=== PATIENT | female | born 1955 | race Caucasian/White ===

== ENCOUNTER 2016-11-03 06:28 | Day surgery (SDC) | payer BC ==
[~2016-11-03 06:28] MED LIST: Lactated Ringers 1,000 ML IV SCH
[2016-11-03] MEDS ORDERED: Lactated Ringers 1,000 ML IV SCH (07:00)
[2016-11-03] MEDS ORDERED: Propofol 200 MG/20 ML SDV ONE (07:37)
[2016-11-03] MEDS ORDERED: fentaNYL 100 MCG/2 ML SDV ONE (07:37)
[2016-11-03] MEDS ORDERED: Midazolam 1 MG/ML 2 ML SDV ONE (07:37)
[2016-11-03 09:13] VITALS: BP 98/73
--- NOTE | 2016-11-03 10:31 | OR ---
DATE OF PROCEDURE: 11/03/2016 PREOPERATIVE DIAGNOSIS: Colon cancer screening. POSTOPERATIVE DIAGNOSIS: Diverticulosis. PROCEDURE: Colonoscopy to the cecum. ANESTHESIA: IV anesthesia with monitored anesthesia care. INDICATIONS: This 61-year-old white female is referred for a colonoscopy for colon cancer screening. She said the last colonoscopy was done many years ago, probably about ten. I counseled her for the procedure, including risks and alternatives, and she gave her informed consent to proceed. DESCRIPTION OF PROCEDURE: The patient was placed in the left lateral decubitus position. IV anesthesia was administered by the Anesthesia Service. Time-out was held. A rectal exam was performed, which was unremarkable. The flexible video Olympus colonoscope was introduced through her anus, up her rectum, and out her colon all way to the cecum. En route, we saw a few scattered left-sided diverticula. There was no bleeding or inflammation associated with any of them. Once the cecum was reached, the scope was slowly withdrawn, examining the mucosa throughout. No additional mucosal abnormalities were noted. The scope was retroflexed in the rectum with the distal rectum appearing unremarkable. The scope was straightened and removed. She tolerated the procedure well. Charbel Newell MD /[id number] SHAKEEL
== END 2016-11-03 09:15 | disposition home or self-care (01) ==
LOC: JP.SDS 06:28
PROVIDERS: ATTEND Surgery
DX: Z12.11 Encounter for screening for malignant neoplasm of colon (principal); K57.30 Diverticulosis of large intestine without perforation or abscess without bleeding
CPT/HCPCS: 45378; J2250; J2704; J3010; J7120

== ENCOUNTER 2019-04-19 08:36 | Emergency (ER) | payer BC, OTHER ==
[2019-04-19] MEDS ORDERED: Sodium Chloride 0.9% 1,000 ML IV SCH ×2 (09:15→10:30)
--- NOTE | 2019-04-19 09:20 | EDM.PDOC ---
ED HPI GENERAL MEDICAL PROBLEM - General Chief Complaint: Flank Pain Stated Complaint: BLOOD IN URINE Time Seen by Provider: 04/19/19 09:17 Source of Information: Reports: Patient History Limitations: Reports: No Limitations - History of Present Illness INITIAL COMMENTS - FREE TEXT/NARRATIVE: pt has left flank pain. She is passing pure blood at times. This has happened before. She is being followed by a urologist. Onset: Today, Other (pain got bad during the nite. ) Duration: Hour(s): Location: Reports: Abdomen Associated Symptoms: Reports: Weakness flank pain Pain Score (Numeric/FACES): 8 - Related Data Allergies Allergy/AdvReac Type Severity Reaction Status Date / Time acetaminophen [From [place]] Allergy Cannot Verified 04/19/19 09:04 Remember chlorthalidone Allergy Cannot Verified 04/19/19 09:04 Remember cortisone [Cortisone] Allergy Redness Verified 04/19/19 09:04 diphenhydramine HCl Allergy Swelling Verified 04/19/19 09:04 [From Benadryl] hydrocodone [From [place]] Allergy Cannot Verified 04/19/19 09:04 Remember celecoxib [From Celebrex] AdvReac Bleeding Verified 04/19/19 09:04 meloxicam AdvReac Bleeding Verified 04/19/19 09:04 tramadol HCl [From Ultram] AdvReac Bleeding Verified 04/19/19 09:04 Home Meds: Home Meds NK [No Known Home Meds] 04/19/19 [History] Past Medical History HEENT History: Reports: Allergic Rhinitis, Impaired Vision Cardiovascular History: Reports: Arrhythmia, High Cholesterol, Pacemaker Gastrointestinal History: Reports: Cholelithiasis, Colon Polyp, GERD, Hemorrhoids, Hiatal Hernia Genitourinary History: Reports: Renal Calculus SCREWHEAD [employer]ER History: Reports: Ectopic , Musculoskeletal History: Reports: Osteoarthritis - Infectious Disease History Infectious Disease History: Reports: Measles - Past Surgical History HEENT Surgical History: Reports: Oral Surgery, Tonsillectomy Cardiovascular Surgical History: Reports: Pacer GI Surgical History: Reports: Appendectomy, Cholecystectomy, Colonoscopy, EGD, Gely Fundoplication Female Surgical History: Reports: Section, D&C, Hysterectomy, Lithotripsy/ESWL Musculoskeletal Surgical History: Reports: Arthroscopic Procedure Social & Family History - Tobacco Use Smoking Status *Q: Never Smoker - Caffeine Use Caffeine Use: Reports: None - Recreational Drug Use Recreational Drug Use: No ED ROS GENERAL - Review of Systems Review Of Systems: See Below Constitutional: Reports: Weakness HEENT: Reports: No Symptoms Respiratory: Reports: No Symptoms Cardiovascular: Reports: No Symptoms, Other (pt does have a pacemaker) Endocrine: Reports: No Symptoms GI/Abdominal: Reports: Abdominal Pain, Other (pt has pain in the left flank area. ) : Reports: Flank Pain, Hematuria Musculoskeletal: Reports: No Symptoms Skin: Reports: No Symptoms ED EXAM, GI/ABD - Physical Exam Exam: See Below Text/Narrative:: pt arrived with a history of blood in the urine She has had 2 episodes where she is passing pure blood. She is having flank pain on the left and left lwer abdomanal pain. Exam Limited By: No Limitations General Appearance: Alert, Anxious, Moderate Distress Ears: Normal TMs Nose: Normal Inspection Throat/Mouth: Normal Inspection Head: Atraumatic Neck: Normal Inspection Respiratory/Chest: No Respiratory Distress Cardiovascular: Regular Rate, Rhythm GI/Abdominal Exam: Soft, Tender, Other (pt has left cva tenderness and left lower abdomanal tenderness. ) (Female) Exam: Deferred Rectal (Female) Exam: Deferred Back Exam: Normal Inspection Extremities: Normal Inspection Neurological: Alert, Oriented, Normal Cognition Course - Vital Signs Last Recorded V/S: Last Vital Signs Temp 36.2 C 04/19/19 09:05 Pulse 61 04/19/19 11:05 Resp 12 04/19/19 11:05 BP 137/85 04/19/19 11:05 Pulse Ox 98 04/19/19 11:05 - Orders/Labs/Meds Orders: Active Orders 24 hr Category Date Time Status CULTURE URINE [RM] Stat Lab 04/19/19 11:53 Received Sodium Chloride 0.9% [Normal Saline] 1,000 ml Med 04/19/19 09:15 Active IV ASDIRECTED Sodium Chloride 0.9% [Normal Saline] 1,000 ml Med 04/19/19 10:30 Active IV ASDIRECTED Medication Orders Sodium Chloride (Normal Saline) 1,000 mls @ 999 mls/hr IV ASDIRECTED ROCK Last Admin: 04/19/19 09:16 Dose: 999 mls/hr Sodium Chloride (Normal Saline) 1,000 mls @ 999 mls/hr IV ASDIRECTED ROCK Last Admin: 04/19/19 11:09 Dose: 999 mls/hr Labs: Laboratory Tests 04/19/19 04/19/19 04/19/19 Range/Units 09:17 09:42 09:42 WBC 4.6 (4.5-11.0) K/uL RBC 4.49 (3.30-5.50) M/uL Hgb 14.0 (12.0-15.0) g/dL Hct 39.5 (36.0-48.0) % MCV 88 (80-98) fL MCH 31 (27-31) pg MCHC 35 (32-36) % Plt Count 210 (150-400) K/uL Neut % (Auto) 63 (36-66) % Lymph % (Auto) 23 L (24-44) % [place] % (Auto) 11 H (2-6) % Eos % (Auto) 2 (2-4) % Baso % (Auto) 1 (0-1) % Sodium 142 (140-148) mmol/L Potassium 4.7 (3.6-5.2) mmol/L Chloride 110 H (100-108) mmol/L Carbon Dioxide 20 L (21-32) mmol/L Anion Gap 16.7 H (5.0-14.0) mmol/L BUN 18 (7-18) mg/dL Creatinine 0.6 (0.6-1.0) mg/dL Est Cr Clr Drug Dosing 79.39 mL/min Estimated GFR (MDRD) > 60 (>60) Glucose 104 (74-106) mg/dL Calcium 8.3 L (8.5-10.1) mg/dL Total Bilirubin 0.9 (0.2-1.0) mg/dL AST 27 (15-37) U/L ALT 21 (12-78) U/L Alkaline Phosphatase 109 (46-116) U/L C-Reactive Protein < 0.05 (0.0-0.3) mg/dL Total Protein 6.5 (6.4-8.2) g/dL Albumin 3.5 (3.4-5.0) g/dL Globulin 3.0 (2.3-3.5) g/dL Albumin/Globulin Ratio 1.2 (1.2-2.2) Urine Color Yellow (YELLOW) Urine Appearance Clear (CLEAR) Urine pH 5.5 (5.0-8.0) Ur Specific [place] >= 1.030 (1.008-1.030) Urine Protein Negative (NEGATIVE) mg/dL Urine Glucose (UA) Negative (NEGATIVE) mg/dL Urine Ketones Negative (NEGATIVE) mg/dL Urine Occult Blood Small H (NEGATIVE) Urine Nitrite Negative (NEGATIVE) Urine Bilirubin Negative (NEGATIVE) Urine Urobilinogen 0.2 (0.2-1.0) EU/dL Ur Leukocyte Esterase Trace H (NEGATIVE) Urine RBC 5-10 H (0-5) Urine WBC 0-5 (0-5) Ur Epithelial Cells Many Amorphous Sediment Few Urine Bacteria Not seen Urine Mucus Not seen Urine Other Meds: Medications Generic Name Dose Route Start Last Admin Trade Name Freq PRN Reason Stop Dose Admin Sodium Chloride 1,000 mls @ 999 mls/hr 04/19/19 09:15 04/19/19 09:16 Normal Saline IV 999 mls/hr ASDIRECTED ROCK Administration Sodium Chloride 1,000 mls @ 999 mls/hr 04/19/19 10:30 04/19/19 11:09 Normal Saline IV 999 mls/hr ASDIRECTED ROCK Administration Discontinued Medications Generic Name Dose Route Start Last Admin Trade Name Freq PRN Reason Stop Dose Admin Hydromorphone HCl 0.5 mg 04/19/19 09:22 04/19/19 09:49 Dilaudid IVPUSH 04/19/19 09:23 0.5 mg ONETIME ONE Administration Ondansetron HCl 4 mg 04/19/19 09:22 04/19/19 09:46 Zofran IVPUSH 04/19/19 09:23 4 mg ONETIME ONE Administration - Re-Assessments/Exams Free Text/Narrative Re-Assessment/Exam: 04/19/19 12:23 urine does have alot of epith. cells. It is very concentrated. pt has only got a few rbcs at this time. The urine will be cultured. She had a cat scan without contrast and she did not have a stone. She does have a cyst in the lower pole o the left kidney. Departure - Departure Time of Disposition: 12:28 Disposition: Home, Self-Care 01 Condition: Fair Clinical Impression: Hematuria, Kidney infection, Dehydration - Discharge Information Referrals: Jose Ortega MD [Primary Care Provider] - Forms: ED Department Discharge Care Plan Goals: push fluids, tylenol and motrin for pain, cipro 500mg bid for 10 days, will notify of the culture. - My Orders Last 24 Hours: My Active Orders 04/19/19 09:15 Sodium Chloride 0.9% [Normal Saline] 1,000 ml IV ASDIRECTED 04/19/19 10:30 Sodium Chloride 0.9% [Normal Saline] 1,000 ml IV ASDIRECTED 04/19/19 11:53 CULTURE URINE [RM] Stat - Assessment/Plan Last 24 Hours: My Active Orders 04/19/19 09:15 Sodium Chloride 0.9% [Normal Saline] 1,000 ml IV ASDIRECTED 04/19/19 10:30 Sodium Chloride 0.9% [Normal Saline] 1,000 ml IV ASDIRECTED 04/19/19 11:53 CULTURE URINE [RM] Stat
[2019-04-19] MEDS ORDERED: HYDROmorphone 0.5 MG/0.5 ML Syringe IVPUSH ONE (09:22)
[2019-04-19] MEDS ORDERED: Ondansetron 4 MG/2 ML SDV IVPUSH ONE (09:22)
[2019-04-19 11:06] VITALS: PULSE 61
--- NOTE | 2019-04-19 11:33 | CRLCT ---
INDICATION: Flank pain, hematuria. TECHNIQUE: CT abdomen and pelvis without contrast. COMPARISON: CT abdomen/pelvis 07/05/2015 FINDINGS: Lower chest: Moderate-size hiatal hernia, similar to the prior CT, with surgical sutures at the gastroesophageal junction. Liver: Within normal limits. Spleen: Within normal limits. Pancreas: Within normal limits. Gallbladder and bile ducts: Status post cholecystectomy. No intra or extrahepatic biliary ductal dilatation. Kidneys/ureters/bladder: No hydronephrosis. No renal calculi. Stable sub centimeter fat attenuation lesion in the lower pole of the right kidney, consistent with an angiomyolipoma. Stable 1.1 cm hyperdense lesion in the lower pole of the left kidney, unchanged since 07/03/2015, likely hemorrhagic/proteinaceous cyst. No hydroureter. No ureteral calculi. No bladder calculi. Adrenal glands: Within normal limits. GI tract: No bowel obstruction. Scattered sigmoid diverticula, without evidence of acute diverticulitis. Vascular structures: Within normal limits. Lymph nodes: No abdominal or pelvic lymphadenopathy. Miscellaneous: No free air or ascites. Pelvic Organs: Status post hysterectomy. Bones: Stable tiny 5sclerotic lesion in the right acetabulum, likely bone island.. IMPRESSION: 1. No urinary tract calculi. No hydronephrosis. 2. Diverticulosis, without evidence of acute diverticulitis. Dictated by Kat Gutierrez MD @ 04/19/2019 11:31:44 AM Please note that all CT scans at this facility use dose modulation, iterative reconstruction, and/or weight-based dosing when appropriate to reduce radiation dose to as low as reasonably achievable. Dictated by: Kat Gutierrez MD @ 04/19/2019 11:31:49 (Electronically Signed)
[2019-04-19 12:33] VITALS: BP 129/61
== END 2019-04-19 12:48 | disposition home or self-care (01) ==
LOC: JP.ED 08:36
DX: N15.9 Renal tubulo-interstitial disease, unspecified (principal); R31.9 Hematuria, unspecified; E86.0 Dehydration; Z90.49 Acquired absence of other specified parts of digestive tract; Z90.710 Acquired absence of both cervix and uterus; Z88.6 Allergy status to analgesic agent; Z88.8 Allergy status to other drugs, medicaments and biological substances; Z88.5 Allergy status to narcotic agent
CPT/HCPCS: 36415; 74176; 80053; 81001; 85025; 86140; 87086; 96361; 96374; 96375; 99284; J1170; J2405; J7030

== ENCOUNTER 2020-05-06 07:30 | Day surgery (SDC) | payer OTHER ==
[2020-05-06] MEDS ORDERED: Sodium Chloride 0.9% 10 ML Syringe FLUSH PRN (08:00)
[2020-05-06 09:55] VITALS: BP 165/99; PULSE 62
--- NOTE | 2020-05-06 11:06 | OR ---
DATE OF PROCEDURE: 05/06/2020 SURGEON: Trina Gamez MD POSTOPERATIVE CARE: Postoperative care will be provided mainly at the [address] [place] [address] [facility] in conjunction with [facility]. PREOPERATIVE DIAGNOSIS: Cataract, right eye. POSTOPERATIVE DIAGNOSIS: Cataract, right eye. PROCEDURE: Phacoemulsification with intraocular lens placement, right eye. ANESTHESIA: Topical and intracameral. ESTIMATED BLOOD LOSS: Minimal. COMPLICATIONS: None. PATHOLOGY SPECIMENS: None. SURGICAL FINDINGS: None. INDICATION FOR PROCEDURE: The patient is a 64-year-old female with history of a visually significant cataract in the right eye, which interfered with activities of daily living. This consisted of a nuclear sclerosis cataract. Following careful discussion of the risks, benefits and alternatives to cataract extraction with intraocular lens placement including blindness and , the patient elected to proceed, and informed, written consent was obtained prior to the procedure. DESCRIPTION OF THE PROCEDURE: The patient was previously identified, and a mason placed above the right eye. All sources, including the patient, indicated that the right eye was the correct eye. The patient was subsequently taken to the operating room where standard monitors were applied. The patient was then prepped and draped in the usual sterile fashion for ophthalmic surgery. Attention was first directed at the 12 o'clock position where a paracentesis port was fashioned. Shugar solution followed by Viscoat was instilled into the eye. Attention was then directed to the 8:30 position where a triplanar incision was made in a near-clear manner using a keratome. A continuous capsulorrhexis was then made using a combination of the cystotome and Utrata forceps. Hydrodissection was achieved using a balanced salt solution, and the lens rotated nicely. Phacoemulsification was then done using a modified [id number] technique without complication. Phaco time was 3.35 CDE. The remaining cortex was removed using the irrigation/aspiration handpiece. Provisc was then instilled into the eye. A Technis lens, model PCB00, at 26.0 diopters was then placed in the capsular bag using an [place] injector. The remaining viscoelastic was removed using the irrigation/aspiration forceps. All wounds were then checked and found to be watertight. The lid speculum and drapes were removed. Maxitrol ointment was placed in the patient's right eye, and the eye was shielded. The patient tolerated the procedure well. The patient was instructed to follow up tomorrow. All needle and sponge counts were correct at the end of the procedure. Trina Gamez MD /[id number]
== END 2020-05-06 09:57 | disposition home or self-care (01) ==
LOC: JP.SDS 07:30
PROVIDERS: ATTEND Ophthalmology
DX: H25.11 Age-related nuclear cataract, right eye (principal); K21.9 Gastro-esophageal reflux disease without esophagitis
CPT/HCPCS: V2632

== ENCOUNTER 2020-05-20 07:03 | Day surgery (SDC) | payer OTHER ==
[2020-05-20] MEDS ORDERED: Sodium Chloride 0.9% 10 ML Syringe FLUSH PRN (07:30)
[2020-05-20 08:48] VITALS: BP 141/78; PULSE 65
--- NOTE | 2020-05-20 09:26 | OR ---
DATE OF PROCEDURE: 05/20/2020 SURGEON: Trina Gamez MD POSTOPERATIVE CARE: Postoperative care will be provided mainly at the [address] [place] [address] [facility] in conjunction with [facility]. PREOPERATIVE DIAGNOSIS: Cataract, left eye. POSTOPERATIVE DIAGNOSIS: Cataract, left eye. PROCEDURE: Phacoemulsification with intraocular lens placement, left eye. ANESTHESIA: Topical and intracameral. ESTIMATED BLOOD LOSS: Minimal. COMPLICATIONS: None. PATHOLOGY SPECIMENS: None. SURGICAL FINDINGS: None. INDICATION FOR PROCEDURE: The patient is a 64-year-old female with history of a visually significant cataract in the left eye, which interfered with activities of daily living. This consisted of a nuclear sclerosis cataract. Following careful discussion of the risks, benefits and alternatives to cataract extraction with intraocular lens placement including blindness and , the patient elected to proceed, and informed, written consent was obtained prior to the procedure. DESCRIPTION OF THE PROCEDURE: The patient was previously identified, and a mason placed above the left eye. All sources, including the patient, indicated that the left eye was the correct eye. The patient was subsequently taken to the operating room where standard monitors were applied. The patient was then prepped and draped in the usual sterile fashion for ophthalmic surgery. Attention was first directed at the 12 o'clock position where a paracentesis port was fashioned. Shugar solution followed by Viscoat was instilled into the eye. Attention was then directed to the 8:30 position where a triplanar incision was made in a near-clear manner using a keratome. A continuous capsulorrhexis was then made using a combination of the cystotome and Utrata forceps. Hydrodissection was achieved using a balanced salt solution, and the lens rotated nicely. Phacoemulsification was then done using a modified [id number] technique without complication. Phaco time was 4.53 CDE. The remaining cortex was removed using the irrigation/aspiration handpiece. Provisc was then instilled into the eye. A Technis lens, model PCB00, at 23.5 diopters was then placed in the capsular bag using an [place] injector. The remaining viscoelastic was removed using the irrigation/aspiration forceps. All wounds were then checked and found to be watertight. The lid speculum and drapes were removed. Maxitrol ointment was placed in the patient's left eye, and the eye was shielded. The patient tolerated the procedure well. The patient was instructed to follow up tomorrow. All needle and sponge counts were correct at the end of the procedure. Trina Gamez MD /[id number]
== END 2020-05-20 08:51 | disposition home or self-care (01) ==
LOC: JP.SDS 07:03
PROVIDERS: ATTEND Ophthalmology
DX: H26.9 Unspecified cataract (principal); M19.90 Unspecified osteoarthritis, unspecified site
CPT/HCPCS: V2632

== ENCOUNTER 2022-07-31 09:08 | Emergency (ER) | payer MEDICARE, OTHER ==
[2022-07-31] MEDS ORDERED: Sodium Chloride 0.9% 10 ML Syringe FLUSH PRN (09:52)
[2022-07-31] MEDS ORDERED: Ondansetron 4 MG/2 ML SDV IVPUSH ONE (09:53)
[2022-07-31] MEDS ORDERED: Ketorolac 30 MG/ML SDV IVPUSH ONE (09:53)
[2022-07-31] MEDS ORDERED: Lactated Ringers 1,000 ML IV SCH (10:00)
[2022-07-31 10:16] LABS: CORONAVIRUS COVID-19 NAA NEGATIVE (NEGATIVE)
[2022-07-31 10:31] VITALS: BP 160/74; PULSE 61
[2022-07-31 10:47] LABS: ESTIMATED GFR 50 mL/min (>60); TROPONIN I HIGH SENSITIVITY 29.7 pg/mL (<=60.3)
== END 2022-07-31 11:28 | disposition home or self-care (01) ==
LOC: JP.ED 09:08
DX: N13.2 Hydronephrosis with renal and ureteral calculous obstruction (principal); Z88.6 Allergy status to analgesic agent; Z88.5 Allergy status to narcotic agent; Z88.1 Allergy status to other antibiotic agents; Z88.8 Allergy status to other drugs, medicaments and biological substances; Z20.822 Contact with and (suspected) exposure to COVID-19
CPT/HCPCS: 0241U; 36415; 74176; 80053; 81001; 83605; 83690; 84484; 85025; 96361; 96374; 96375; 99284; J1885; J2405; J3490; J7120

== ENCOUNTER 2022-08-20 12:52 | Emergency (ER) | payer MEDICARE ==
[2022-08-20] MEDS ORDERED: Ondansetron 4 MG/2 ML SDV IVPUSH ONE (14:22)
[2022-08-20] MEDS ORDERED: Ketorolac 30 MG/ML SDV IVPUSH ONE (14:22)
[2022-08-20 15:50] VITALS: BP 128/79; PULSE 78
== END 2022-08-20 15:55 | disposition home or self-care (01) ==
LOC: JP.ED 12:52
DX: N13.2 Hydronephrosis with renal and ureteral calculous obstruction (principal); E78.00 Pure hypercholesterolemia, unspecified; K21.9 Gastro-esophageal reflux disease without esophagitis; Z95.0 Presence of cardiac pacemaker; Z88.5 Allergy status to narcotic agent; Z88.8 Allergy status to other drugs, medicaments and biological substances; Z86.16 Personal history of COVID-19; Z79.899 Other long term (current) drug therapy
CPT/HCPCS: 36415; 74176; 80048; 81003; 85025; 96374; 96375; 99283; 99284-25; J1885; J2405